=== PATIENT | female | born 1935 | race Caucasian/White ===

== ENCOUNTER 2018-09-18 18:53 | Emergency (ER) | payer OTHER ==
[~2018-09-18] VITALS: Ht 167.6 cm; Wt 68.0 kg
[2018-09-18 18:53] VITALS: BP_SYST 152
--- NOTE | 2018-09-18 18:53 | NUR ---
Patient to ER bed 4 to gown for evaluation. Side rails up. Report given to Woo.
--- NOTE | 2018-09-18 18:53 | NUR ---
Pt BIB BLS from home with c/o generalized abdominal pain with N/V/D since yesterday. Pt states that she tried to drink pedialyte but would vomit each attempt. Pt also c/o non-productive cough x 1 day. Pt AAOx3 denies N/V/D at this time.
--- NOTE | 2018-09-18 19:35 | NUR ---
Dr. Thomas at bedside.
--- NOTE | 2018-09-18 19:35 | NUR ---
# 20 gauge angiocath placed to LAC. Use of asceptic technique. Opsite placed over site. Blood return noted. Blood for lab drawn from site. Flushed with 10 cc of normal saline. No evidence of infiltration noted. Patient tolerated well.
[2018-09-18] MEDS ORDERED: NACL 0.9% 1,000 ML IV ONE (20:00)
[2018-09-18] MEDS ORDERED: ONDANSETRON HCL 4 MG/2 ML VIAL IVP ONE (20:00)
[2018-09-18 20:01] LABS: HEMOGLOBIN 14.5 g/dL (12.0-16.0); MONOCYTES # (AUTO) 0.6 K/uL (0.0-1.0); RED CELL DISTRIBUTION WIDTH 13.9 % (9.0-15.0)
[2018-09-18 20:06] LABS: BASOPHILS % (AUTO) 0.3 % (0.0-2.0); HEMATOCRIT 43.3 % (36-48); LYMPHOCYTES # (AUTO) 0.7 K/uL (1.0-5.5); LYMPHOCYTES % (AUTO) 6.7 % (20.5-51.5); MEAN CORPUSCULAR HEMOGLOBIN 31 pg (27-31); MEAN CORPUSCULAR HGB CONC 34 % (32-36); MEAN CORPUSCULAR VOLUME 93 fL (79.0-98.0); MONOCYTES % (AUTO) 5.7 % (1.7-9.3); NEUTROPHILS # (AUTO) 9.8 K/uL (1.8-7.7); NEUTROPHILS % (AUTO) 87.3 % (40.0-70.0); PLATELET COUNT (AUTO) 346 K/uL (130-430); RED BLOOD CELL COUNT(AUTO) 4.65 MIL/uL (4.2-6.2); WHITE BLOOD COUNT (AUTO) 11.2 K/uL (4.8-10.8)
[2018-09-18 20:07] LABS: ANION GAP 14 (5-15); CALCIUM 10.2 mg/dL (8.4-11.0); CHLORIDE 102 mmol/L (98-107); CREATININE 1.24 mg/dL (0.55-1.30); GLUCOSE 164 mg/dL (70-99); POTASSIUM 3.9 mmol/L (3.5-5.1); SODIUM SERUM 140 mmol/L (136-145); UREA NITROGEN, BLOOD 27 mg/dL (8-21)
[2018-09-18 20:12] LABS: ALANINE AMINOTRANSFERASE 22 U/L (12-78); ALBUMIN 4.1 g/dL (3.4-4.8); AMYLASE 45 U/L (0-100); ASPARTATE AMINOTRANSFERASE 25 U/L (10-37); LIPASE 76 U/L (73-393); TOTAL BILIRUBIN 0.5 mg/dL (0.0-1.0)
--- NOTE | 2018-09-18 20:30 | NUR ---
Pt denies c/o pain or discomfort, no needs verbalized, VSS, NAD.
--- NOTE | 2018-09-18 21:45 | NUR ---
Pt resting quietly, respirations even and non-labored, NAD.
--- NOTE | 2018-09-18 22:00 | NUR ---
After repeated requests by Pt for either Squirt or Sprite Soda, and Pt specifically being told that Doctor advises she shouldn't be drinking carbonated Sodas; she would continue to state that she hasn't had any caloric intake all day, and that a Sprite or Squirt Soda would be a quick way for her to restore her strength. After consulting Dr. Thomas and ED Charge, a one time exception was made where Sprite Soda with ice was then given to Pt, and Pt being instructed to only sip slowly to consume. It was well tolerated at the time.
--- NOTE | 2018-09-18 22:45 | NUR ---
Pt denies c/o pain or discomfort, no needs verbalized, VSS, NAD.
--- NOTE | 2018-09-18 23:40 | NUR ---
Called daughter, Mirella, and informed her that patient is ready for discharge. Per Mirella, grandabbi Baker will be picking up patient after 2 am due to getting off work around that time.
--- NOTE | 2018-09-18 23:50 | NUR ---
Pt informed that we contacted her daughter and her grandson Samuel will be picking her up when he gets off work around 2 am. Pt
--- NOTE | 2018-09-19 01:00 | NUR ---
Pt resting quietly, even and non-labored respirations, NAD>
--- NOTE | 2018-09-19 03:19 | NUR ---
Spoke with patient's daughter, Mirella, in regards to who will be picking up patient. Per Mirella, grandson, Samuel, "will be picking up patient after work." Grandson "just got off work but he's coming from [facility]." Patient was informed.
--- NOTE | 2018-09-19 03:30 | NUR ---
Pt vomits green colored emesis. Pt had 8 ounces of juice about 30 minutes ago. Pt cleaned and new gown and bed linens placed. Dr. Thomas notified.
[2018-09-19] MEDS ORDERED: ONDANSETRON HCL 4 MG/2 ML VIAL IVP ONE (03:45)
[2018-09-19] MEDS ORDERED: ONDANSETRON HCL 4 MG/2 ML VIAL ONE (03:50)
--- NOTE | 2018-09-19 04:25 | NUR ---
Contacted pt.s grandson, Samuel ( ). He states that he is now leaving his grandmother's residence ([place], [place] per chart) to come pick her up.
--- NOTE | 2018-09-19 05:00 | NUR ---
Pt grandson arrives. Pt to be discharged. Pt requests to speak to ER physician and Dr. Thomas called to bedside. Pt states "I don't feel like she should go home and have vomited 3 different times." Dr. Thomas attempted to explain to pt and pt.s grandson that she doesn't meet any specific criteria for admission. Pt insists that she be admitted and grandson concerned about pt going home. Dr. Thomas states that he will speak to the hospitalist to discuss available disposition options.
--- NOTE | 2018-09-19 05:20 | NUR ---
Pt's grandson provides sprite to pt. Advised pt and grandson that soda may potentiate N/V. They verbalize understanding, yet she begins to drink soda.
--- NOTE | 2018-09-19 05:35 | NUR ---
Dr. Thomas at bedside.
--- NOTE | 2018-09-19 05:43 | NUR ---
Dr. Thomas on phone with Dr. Rodas. Pt to be ER Hold.
[2018-09-19] MEDS ORDERED: NACL 0.9% 1,000 ML IV ONE (06:00)
--- NOTE | 2018-09-19 06:10 | NUR ---
correctional supply supervisor at bedside to discuss POC and available options.
[2018-09-19] MEDS ORDERED: PROMETHAZINE INJ.Non-Formulary 25 MG/ML AMP IVP ONE (06:15)
--- NOTE | 2018-09-19 06:15 | NUR ---
Pt c/o nausea. Dr. Thomas notified.
--- NOTE | 2018-09-19 06:35 | NUR ---
No Phenergan IV available. Dr. Thomas notified. Order changed to Reglan.
[2018-09-19] MEDS ORDERED: METOCLOPRAMIDE HCL 10 MG/2 ML VIAL IVP ONE (06:45)
--- NOTE | 2018-09-19 07:10 | NUR ---
Pt report given to ADOLFO Ca.
--- NOTE | 2018-09-19 07:15 | NUR ---
Pt received laying in bed with eyes closed. Pt connected to in room monitor, with vital signs stable. IV patent infusing NS to gravity. Pt assisted to in room commode, unable to produce urine only diarrhea. Pts grandson at bedside, left to go home to get medication for med rec. Pt soiled her pants, assisted pt with taking off pants and putting bedside in a pt belongings bag. Vital signs stable, will continue to monitor.
--- NOTE | 2018-09-19 07:15 | NUR ---
MED REC ATTEMPTED. PATIENT'S GRANDSON LEFT TO GET PATIENT'S MEDICATIONS FOR MED REC.
--- NOTE | 2018-09-19 07:25 | NUR ---
PER NIGHT NURSE ADOLFO COYLE, PATIENT REFUSED IN N OUT CATH TO COLLECT URINE.
--- NOTE | 2018-09-19 08:27 | NUR ---
Radiology Pt off unit to CT
--- NOTE | 2018-09-19 08:46 | NUR ---
Radiology Pt returned to unit from CT
--- NOTE | 2018-09-19 08:48 | NUR ---
LAB Lab at beside with ptNisha
[2018-09-19 09:17] LABS: BASOPHILS % (AUTO) 0.3 % (0.0-2.0); HEMATOCRIT 39.2 % (36-48); HEMOGLOBIN 13.2 g/dL (12.0-16.0); LYMPHOCYTES # (AUTO) 0.6 K/uL (1.0-5.5); LYMPHOCYTES % (AUTO) 5.6 % (20.5-51.5); MEAN CORPUSCULAR HEMOGLOBIN 31 pg (27-31); MEAN CORPUSCULAR HGB CONC 34 % (32-36); MEAN CORPUSCULAR VOLUME 93 fL (79.0-98.0); MONOCYTES # (AUTO) 0.6 K/uL (0.0-1.0); MONOCYTES % (AUTO) 5.9 % (1.7-9.3); NEUTROPHILS # (AUTO) 8.7 K/uL (1.8-7.7); NEUTROPHILS % (AUTO) 88.2 % (40.0-70.0); PLATELET COUNT (AUTO) 296 K/uL (130-430); RED BLOOD CELL COUNT(AUTO) 4.21 MIL/uL (4.2-6.2); RED CELL DISTRIBUTION WIDTH 13.9 % (9.0-15.0); WHITE BLOOD COUNT (AUTO) 9.9 K/uL (4.8-10.8)
[2018-09-19 09:28] LABS: PROTHROMBIN TIME 10.3 SECS (9.5-12.5)
--- NOTE | 2018-09-19 09:37 | NUR ---
Patient resting quietly. No acute distress noted. Vital signs within normal range.
[2018-09-19 09:49] LABS: ANION GAP 11 (5-15); CALCIUM 9.1 mg/dL (8.4-11.0); CHLORIDE 106 mmol/L (98-107); GLUCOSE 157 mg/dL (70-99); POTASSIUM 3.9 mmol/L (3.5-5.1); SODIUM SERUM 142 mmol/L (136-145); UREA NITROGEN, BLOOD 28 mg/dL (8-21)
[2018-09-19 09:52] LABS: ALANINE AMINOTRANSFERASE 19 U/L (12-78); ALBUMIN 3.3 g/dL (3.4-4.8); ASPARTATE AMINOTRANSFERASE 28 U/L (10-37); TOTAL BILIRUBIN 0.4 mg/dL (0.0-1.0)
[2018-09-19 09:55] LABS: ALCOHOL, BLOOD < 3 mg/dL (<10)
[2018-09-19 10:15] LABS: FREE T4 (FREE THYROXINE) 0.7 ng/dL (0.6-1.6)
--- NOTE | 2018-09-19 10:49 | NUR ---
IN / OUT Cath Pt tolereated well, instant return of yellow urine. No complaint of distress during in/out cath
[2018-09-19 11:23] LABS: BILIRUBIN,URINE NEGATIVE (NEGATIVE); BLOOD, URINE NEGATIVE (NEGATIVE); CLARITY/URINE CLEAR (CLEAR); COLOR,URINE YELLOW (YELLOW); GLUCOSE,URINE NEGATIVE (NEGATIVE); KETONES,URINE NEGATIVE (NEGATIVE); LEUKOCYTE ESTERASE ,URINE NEGATIVE (NEGATIVE); NITRITE, URINE NEGATIVE (NEGATIVE); PH,URINE 5.5 (5.0-8.0); PROTEIN URINE 1+ (NEGATIVE); UROBILINOGEN,URINE 0.2 (0.2-1.0)
[2018-09-19 11:33] LABS: BARBITURATE, URINE NEGATIVE (NEG <=200); BENZODIAZEPINE, URINE NEGATIVE (NEG <=150); CANNABINOID, URINE NEGATIVE (NEG <=50); COCAINE, URINE NEGATIVE (NEG <=150); METHAMPHETAMINES SCREEN,URINE NEGATIVE (NEG <=500); OPIATE, URINE NEGATIVE (NEG <=100); PHENCYCLIDINE SCREEN,URINE NEGATIVE (NEG <=25); UR TRICYCLIC ANTIDEPRESSANTS NEGATIVE (NEG <=300); URINE AMPHETAMINE NEGATIVE (NEG <=500); URINE METHADONE NEGATIVE (NEG <=200); URINE OXYCODONE SCREEN NEGATIVE (NEG <=100); URINE PROPOXYPHENE SCREEN NEGATIVE (NEG <=300)
--- NOTE | 2018-09-19 12:19 | NUR ---
Patient given written and verbal discharge instructions and verbalizes understanding. ER MD discussed with patient the results and treatment provided. Patient in stable condition. ID arm band removed. IV catheter removed intact and dressing applied, no active bleeding. Rx of Zofran & Lomotil given. Patient educated on pain management and to follow up with PMD. Pain Scale 0/10. Opportunity for questions provided and answered. Medication side effect fact sheet provided.
[2018-09-19 12:41] VITALS: BP_SYST 143
== END 2018-09-19 12:19 | disposition home or self-care (01) ==
LOC: SED 18:53
DX: R11.2 Nausea with vomiting, unspecified (principal); R19.7 Diarrhea, unspecified; R05 Cough
CPT/HCPCS: 36415; 71045; 74176; 80053; 80307; 81003; 82140; 82150; 83605; 83690; 83880; 84439; 84484; 85025; 85610; 87040; 93005; 96361; 96374; 96375; 96376; 99284; G0482; J2405 ×2; J2550; J2765; J7030 ×2